=== PATIENT | female | born 1990 | race Caucasian/White ===

== ENCOUNTER 2019-09-20 20:31 | Emergency (ER) | payer MEDICAID ==
--- NOTE | 2019-09-20 21:51 | ER Document Report ---
ED Medical Screen (RME) - General Chief Complaint: Facial Swelling Stated Complaint: RIGHT SIDE FACE SWELLING Notes: Patient is a 29-year-old white female with a past medical history significant for poor dentition who presents to the emergency department with a chief c omplaint of significant right-sided facial swelling began yesterday as a small area. She went to the doctor this morning was placed on Augmentin has taken some Augmentin already and states throughout the day it is progressively worsening. She states it is now spread to involve most of the right cheek, the right nasolabial fold and is involved in the right periorbital areas. States that she is unable to open her mouth very much to eat. She has about a 1-1/2 finger trismus. No tongue or throat swelling. No difficulty breathing. No known fevers chills or night sweats. I have treated and performed a rapid initial assessment of this patient. A comprehensive ED assessment and evaluation of the patient, analysis of test results and completion of medical decision making process will be conducted by additional ED providers. PHYSICAL EXAMINATION: GENERAL: well-nourished and in no acute distress. A&Ox4. Answers questions appropriately. - Related Data Allergies/Adverse Reactions: No Known Allergies Allergy (Unverified 09/20/19 21:47) Physical Exam - Vital signs Vitals: Temp Pulse Resp BP Pulse Ox 98.3 F 110 H 20 154/91 H 100 09/20/19 21:00 09/20/19 21:00 09/20/19 21:00 09/20/19 21:00 09/20/19 21:00 Course - Vital Signs Vital signs: Temp Pulse Resp BP Pulse Ox 98.3 F 110 H 20 154/91 H 100 09/20/19 21:00 09/20/19 21:00 09/20/19 21:00 09/20/19 21:00 09/20/19 21:00
[2019-09-20 22:34] LABS: ABSOLUTE BASOPHILS # (AUTO) 0.1 10^3/uL (0.0-0.2); ABSOLUTE LYMPHOCYTES (AUTO) 2.6 10^3/uL (0.5-4.7); ABSOLUTE MONOCYTES (AUTO) 0.8 10^3/uL (0.1-1.4); ABSOLUTE NEUT (AUTO) 13.8 10^3/uL (1.7-8.2); BASOPHILS % (AUTO) 0.3 % (0-2); EOSINOPHILS % (AUTO) 0.3 % (0-6); HEMATOCRIT 40.4 % (36.0-47.0); HEMOGLOBIN 13.1 g/dL (12.0-15.5); LYMPHOCYTES % (AUTO) 15.1 % (13-45); MEAN CORPUSCULAR HEMOGLOBIN 25.9 pg (27.0-33.4); MEAN CORPUSCULAR HGB CONC 32.5 g/dL (32.0-36.0); MEAN CORPUSCULAR VOLUME 80 fl (80-97); MONOCYTES % (AUTO) 4.6 % (3-13); PLATELET COUNT 436 10^3/uL (150-450); RED BLOOD COUNT 5.06 10^6/uL (3.72-5.28); RED CELL DISTRIBUTION WIDTH 16.5 % (11.5-14.0); SEGMENTED NEUTROPHILS % (AUTO) 79.7 % (42-78); TOTAL CELLS COUNTED % (AUTO) 100 %; WHITE BLOOD COUNT 17.3 10^3/uL (4.0-10.5)
[2019-09-20 22:54] LABS: ALBUMIN 4.9 g/dL (3.5-5.0); ALKALINE PHOSPHATASE 81 U/L (38-126); ANION GAP 10 (5-19); ASPARTATE AMINO TRANSFERASE 43 U/L (14-36); BILIRUBIN,DIRECT 0.1 mg/dL (0.0-0.4); BILIRUBIN,TOTAL 0.4 mg/dL (0.2-1.3); BLOOD UREA NITROGEN 7 mg/dL (7-20); CALCIUM 10.1 mg/dL (8.4-10.2); CARBON DIOXIDE 25 mmol/L (22-30); CHLORIDE 103 mmol/L (98-107); GLUCOSE 112 mg/dL (75-110); POTASSIUM 4.9 mmol/L (3.6-5.0)
[2019-09-21] MEDS ORDERED: PIPERACILLIN/TAZOBACTAM 3.375 GM VIAL IV ONE (00:51)
[2019-09-21] MEDS ORDERED: VANCOMYCIN HCL INJ 1000 MG VIAL IV ONE (00:52)
[2019-09-21] MEDS ORDERED: KETOROLAC TROMETHAMINE INJ/PF 30 MG/1 ML SDV IV ONE (00:53)
[2019-09-21] MEDS ORDERED: NORMAL SALINE 1000 ML 1,000 ML IV ONE (00:54)
--- NOTE | 2019-09-21 01:24 | RADIOLOGY REPORT (SQ) ---
EXAM DESCRIPTION: CLINICAL HISTORY: 29 years Female right sided facial swelling COMPARISON: None. TECHNIQUE: Contiguous axial images obtained through the neck with IV contrast. Reformatted images obtained. This exam was performed according to our department optimization program which includes automated exposure control, adjustment of the mA and/or kv according to patient size and/or use of iterative reconstruction technique. FINDINGS: The parotid glands, submandibular glands and thyroid gland appear unremarkable. Nasopharynx and oropharynx appear unremarkable. No paravertebral or retropharyngeal fluid or fluid collection. Scattered lymph nodes in the neck likely reactive. No enlarged nodes or mass lesions are identified. No fluid or significant mucosal thickening in the visualized paranasal sinuses. There is extensive dental decay. There is soft tissue swelling over the right face along the lateral aspect of the right nose and nasolabial fold and adjacent to the right maxilla consistent with cellulitis. There appears to be a small abscess or phlegmon extending from the level of the maxilla along the anterior aspect of the maxillary sinus on the right suggests that this originates from a periapical lucency involving the first right maxillary premolar.. There appears to be a very tiny abscess adjacent to the maxilla measuring 6 mm. IMPRESSION: Extensive dental decay with findings suggesting probable periapical infection involving the root of the right maxillary first premolar and adjacent abscess with phlegmon/abscess tracking along the anterior aspect of the maxillary sinus along the lateral wall of the nose Surrounding cellulitis Reactive adenopathy
[2019-09-21] MEDS ORDERED: DIPHENHYDRAMINE HCL 50 MG/ML VIAL IV ONE (03:17)
[2019-09-21] MEDS ORDERED: METHYLPREDNISOLONE INJ 125 MG/2 ML SDV IV ONE ×2 (03:23→03:24)
--- NOTE | 2019-09-21 04:33 | ER Document Report ---
Entered by NALLELY CROFT SCRIBE 09/21/19 0043 Acting as scribe for:ROSETTA TANNER MD ED General - General Chief Complaint: Facial Swelling Stated Complaint: RIGHT SIDE FACE SWELLING Time Seen by Provider: 09/21/19 00:24 Primary Care Provider: SEAN CARDONA DO [Primary Care Provider] - Follow up as needed Information source: Patient Notes: 29-year-old female presents to the emergency department with right facial swelling that began this morning. Patient reports that she started with a toothache 2 days ago and then woke up with facial swelling. After visiting her doctor today and prescribed amoxicillin with clavulin, patient reports that her facial swelling worsened. Patient reports that she has an appointment to remove some of her teeth in 3 weeks and had some fillings about two weeks ago. Patient reports chills and anxiety. Patient denies fevers and skin rash. TRAVEL OUTSIDE OF THE [place] IN LAST 30 DAYS: No - Related Data Allergies/Adverse Reactions: No Known Allergies Allergy (Unverified 09/20/19 21:47) Past Medical History - General Information source: Patient - Social History Smoking Status: Current Every Day Smoker Cigarette use (# per day): Yes Chew tobacco use (# tins/day): No Frequency of alcohol use: Social Drug Abuse: None Occupation: Non-employed Lives with: Family Family History: Reviewed & Not Pertinent Patient has suicidal ideation: No Patient has homicidal ideation: No Pulmonary Medical History: Reports: Hx Asthma Psychiatric Medical History: Reports: Hx Anxiety Surgical Hx: Negative Review of Systems - Review of Systems Constitutional: See HPI, Chills. denies: Fever EENT: No symptoms reported Cardiovascular: No symptoms reported Respiratory: No symptoms reported Gastrointestinal: No symptoms reported Genitourinary: No symptoms reported Female Genitourinary: No symptoms reported Musculoskeletal: No symptoms reported Skin: See HPI. denies: Rash Hematologic/Lymphatic: No symptoms reported Neurological/Psychological: See HPI, Anxiety -: Yes All other systems reviewed and negative Physical Exam - Vital signs Vitals: Temp Pulse Resp BP Pulse Ox 98.3 F 110 H 20 154/91 H 100 09/20/19 21:00 09/20/19 21:00 09/20/19 21:00 09/20/19 21:00 09/20/19 21:00 - Notes Notes: Physical Exam: General: Alert, appears uncomfortable. HEENT: PERRL. Extraocular movements intact. Oropharynx clear. Caries and overall tooth decay in mouth. Right side facial swelling. Neck: Supple. Non-tender. Respiratory: No respiratory distress. Clear and equal breath sounds bilaterally. Cardiovascular: Regular rate and rhythm. Abdominal: Normal Inspection. Non-tender. No distension. Normal Bowel Sounds. Back: No gross abnormalities. Extremities: Moves all four extremities. Upper extremities: Normal inspection. Normal ROM. Lower extremities: Normal inspection. No edema. Normal ROM. Neurological: Normal cognition. AAOx4. Normal speech. Psychological: Normal affect. Normal Mood. Skin: Warm. Dry. Normal color. Course - Re-evaluation Re-evalutation: 09/21/19 04:13 Patient developed rash while receiving IV vancomycin. Vancomycin was discontinued and patient rash is improving patient was given IV Solu-Medrol and IV Benadryl 50 mg. Patient resting comfortably at this time facial swelling cellulitis much improved at this time. - Vital Signs Vital signs: Temp Pulse Resp BP Pulse Ox 98.7 F 88 16 123/70 98 09/21/19 03:45 09/21/19 03:45 09/21/19 03:45 09/21/19 03:45 09/21/19 03:45 - Laboratory Result Diagrams: 09/20/19 21:50 09/20/19 21:50 Laboratory results interpreted by me: 09/20/19 09/20/19 21:50 21:50 WBC 17.3 H MCH 25.9 L RDW 16.5 H Absolute Neuts (auto) 13.8 H Seg Neutrophils % 79.7 H Glucose 112 H AST 43 H ALT 39 H - Diagnostic Test Radiology reviewed: Image reviewed, Reports reviewed Radiology results interpreted by me: 09/21/19 04:[address] disclose soft tissue swelling cellulitis of the right maxillary face area. Extensive dental decay and her her teeth. There is a 6 mm small abscess emanating from the root area of the premolar on the right side. Impression cellulitis of the face. Discharge - Discharge Clinical Impression: Facial cellulitis, Dental caries Condition: Stable Disposition: HOME, SELF-CARE Additional Instructions: Dental Infection or Abscess You have an infection, perhaps an abscess (pus formation) of the gum around one of your teeth, which is probably decayed. If there is an abscess, it may drain on its own or it may need to be opened or lanced. Severe swelling or drainage around a tooth usually means a deep dental abscess which usually requires evaluation and treatment by a dentist or oral surgeon. Antibiotics may be prescribed while awaiting dental treatment. If you develop high fever with chills, worsening pain, or increasing swelling in the area, see a dentist or oral surgeon immediately or return to the Emergency Department immediately. Cellulitis You have an infection of your skin and underlying soft tissues called cellulitis. This is due to bacteria, which can enter through any break in the skin, or even through an irritated hair follicle. Untreated, cellulitis will usually worsen. Antibiotics are required. Usually, warm packs or warm soaks, and elevation of the infected area are recommended. You should start getting better within 24 to 36 hours. Most infections respond quickly to the right medication. Follow-up care is important, however, to check for abscess (boil) formation, unsuspected foreign body, or resistant infection. If you develop fever, chills, or if the area of infection is becoming rapidly more swollen or painful, call the doctor at once. Continue taking your amoxicillin clavulanic acid as prescribed. In addition begin clindamycin 300 mg 3 times a day for 10 days. And recommend ibuprofen as needed for pain swelling or fever. Follow-up with your primary care physician as instructed. Prescriptions: Clindamycin HCl 300 mg PO TID #30 capsule Referrals: SEAN CARDONA DO [Primary Care Provider] - Follow up as needed I personally performed the services described in the documentation, reviewed and edited the documentation which was dictated to the scribe in my presence, and it accurately records my words and actions.
[2019-09-21 04:50] VITALS: BP 109/64
== END 2019-09-21 04:49 | disposition home or self-care (01) ==
LOC: ER 20:31
DX: L03.211 Cellulitis of face (principal); K02.9 Dental caries, unspecified; K04.7 Periapical abscess without sinus; R68.83 Chills (without fever); F41.9 Anxiety disorder, unspecified; J45.909 Unspecified asthma, uncomplicated; F17.210 Nicotine dependence, cigarettes, uncomplicated
CPT/HCPCS: 36415; 87040; 85025; 80053; 70491; J1200; J2930; J1885; J7030; J3370; J2543